=== PATIENT | female | born 1990 | race Caucasian/White ===

== ENCOUNTER 2018-05-04 23:40 | Emergency (ER) | payer BC ==
[~2018-05-04] VITALS: Ht 162.6 cm; Wt 74.8 kg
[2018-05-04 23:45] VITALS: BP 112/74
[2018-05-04] MEDS ORDERED: LIDOCAINE 1% VIAL ONE (23:50)
--- NOTE | 2018-05-04 23:55 | NUR ---
NOHEMY NOHEMY X [address] GOYAL TO LEFT INDEX FINGER. PRESSURE DRESSING APPLIED WITH NONADHERENT BANDAGE AND COBAN.
[2018-05-05] MEDS ORDERED: BOOSTRIX TDAP IM ONE (00:14)
[2018-05-05] MEDS ORDERED: AMOXIL PO ONE (00:14)
[2018-05-05] MEDS: BOOSTRIX TDAP IM ONE (00:16)
[2018-05-05] MEDS: AMOXIL PO STA (00:16)
--- NOTE | 2018-05-05 00:19 | ER.PDOC ---
General Chief Complaint: Extremities Stated Complaint: FINGER LAC Time seen by MD: 23:47 Source: patient Exam Limitations: no limitations History of Present Illness Initial Comments Pt got a finger laceration as she cut the middle finger of her rt had on a broken glass. Not UTD with Tetanus. Denies any other symptoms. Occurred: just prior to arrival Where: home Severity: mild Modifying Factors: nothing Allergies: Coded Allergies: No Known Allergies (Unverified , 05/05/18) Home Meds No Active Prescriptions or Reported Meds Past Medical History Medical History: no pertinent history Surgical History: no surgical history Family History Significant Family History: no pertinent family hx Social History Smoking: cigarettes, less than 1 pack/day Alcohol Use: occassionally Drug Use: none Reviewed Nursing Reviewed: Nursing Assessment Review of Systems Constitutional: no symptoms reported EENTM: no symptoms reported Respiratory: no symptoms reported Cardiovascular: no symptoms reported Gastrointestinal: no symptoms reported Genitourinary: no symptoms reported Musculoskeletal: no symptoms reported Skin: see HPI Psychiatric/Neurological: no symptoms reported All Other Systems: Reviewed and Negative Physical Exam General Appearance: Alert, No Apparent Distress, Other (Smelling of alcohol) Hand: deformity (# cms laceration on the tip of rt middle finger) Wrist: nml inspection Forearm/Elbow: nml inspection Arm/Shoulder: nml inspection Neuro/Vasc/Tendon: sensation nml, motor nml, no vascular compromise, tendon function nml Skin: warm/dry Head/ENT: nml inspection, pharynx nml Neck/Back: nml inspection, non-tender Respiratory: chest non-tender, breath sounds nml CVS: heart sounds normal, tachycardia Abdomen: non-tender, no organomegaly Additional Procedures Progress Laceration repair with [place] was done. 1% lidocaine was used and area was cleaned with Iodine and Peroxide. Wound was around 3 cms, 6 sundeep were applied. Pt tolerated the procedure well. Progress Progress Laceration repair with [place] was done. 1% lidocaine was used and area was cleaned with Iodine and Peroxide. Wound was around 3 cms, 6 sundeep were applied. Pt tolerated the procedure well. Departure Time of Disposition: 12:17 Disposition: 01 HOME, SELF-CARE Impression: Primary Impression: Finger laceration Condition: Improved Hospital Course Laceration repair with [place] was done. 1% lidocaine was used and area was cleaned with Iodine and Peroxide. Wound was around 3 cms, 6 sundeep were applied. Pt tolerated the procedure well. TDap was given. Amoxicillin for infection prophylaxis. Referrals: Raffi ESPINOZA (PCP) PRIMARY CARE PROVIDER Scripts No Active Prescriptions or Reported Meds Duration or Time Spent with Pa: 20 TERESA GOYAL MD May 05, 2018 00:19
[2018-05-05 00:47] VITALS: BP 112/74
== END 2018-05-05 00:44 | disposition home or self-care (01) ==
LOC: ER 23:40
DX: S61.213A Laceration without foreign body of left middle finger without damage to nail, initial encounter (principal); F17.210 Nicotine dependence, cigarettes, uncomplicated; W25.XXXA Contact with sharp glass, initial encounter; Y93.89 Activity, other specified; Y92.098 Other place in other non-institutional residence as the place of occurrence of the external cause; Y99.8 Other external cause status
CPT/HCPCS: 12002; 90471; 90715; 99284; J2001